=== PATIENT | male | born 1965 | race Caucasian/White ===

== ENCOUNTER → 2016-08-24 | Outpatient (CLI) | payer BC, SELFPAY ==
[~2016-08-24] MED LIST: COLA100C3 PO; PERC5TAB6 PO; TOPR25TA PO; TYLE325T5 PO; ZOCO20TA PO; chlorthalidone OR; cholesterol med OR; simvastatin OR
[2016-08-24 08:45] LABS: MEAN CORPUSCULAR HEMOGLOBIN 33.3 pg (27.0-33.0); MEAN CORPUSCULAR HGB CONC 35.1 g/dl (32.0-36.5); MEAN CORPUSCULAR VOLUME 94.9 fl (80.0-96.0); WHITE BLOOD COUNT 5.4 K/mm3 (4.0-10.0)
[2016-08-24 09:08] LABS: CALCIUM LEVEL 9.6 MG/DL (8.5-10.1); CREATININE FOR GFR 1.79 MG/DL (0.70-1.30); GLOMERULAR FILTRATION RATE 43.4 (>60); POTASSIUM SERUM 4.5 MEQ/L (3.5-5.1)
== END ==
LOC: M LAB 08:16
PROVIDERS: ATTEND Urology
DX: N18.3 Chronic kidney disease, stage 3 (moderate) (principal); Z85.528 Personal history of other malignant neoplasm of kidney

== ENCOUNTER → 2016-09-09 | Outpatient (CLI) | payer BC ==
--- NOTE | 2016-09-09 18:04 | REP ---
MRI KIDNEYS WITH AND WITHOUT CONTRAST: TECHNIQUE: Multiple sequences obtained prior to and following the intravenous administration of 24 mL of gadolinium. Comparison made with prior study of 05/01/2015. Multiple hepatic cysts are again seen as on the prior exam. The large cyst in the inferior right lobe appears to have slightly increased in size now with the transverse diameter of 6.7 cm. Spleen, adrenals and pancreas appear unremarkable once again. Once again, there is evidence of prior partial nephrectomy at the lower pole of the right kidney. Cyst is again seen in the lower pole of the left kidney, unchanged. No regional adenopathy is seen and there is no free fluid in the visualized abdomen. There is no hydronephrosis bilaterally. IMPRESSION: Stable exam. No new mass or adenopathy. Signed by Dimitrios Joiner MD 09/12/2016 08:15 P
== END ==
LOC: M RAD 14:49
PROVIDERS: ATTEND Urology
DX: Z08 Encounter for follow-up examination after completed treatment for malignant neoplasm (principal); Z85.528 Personal history of other malignant neoplasm of kidney; N28.1 Cyst of kidney, acquired
CPT/HCPCS: 74183; A9576

== ENCOUNTER → 2016-09-14 | Outpatient (CLI) | payer BC ==
--- NOTE | 2016-09-15 03:34 | REP ---
Clinical: History of renal malignancy . Comparison: 05/08/2015 . Technique: PA and lateral. Findings: The mediastinum and cardiac silhouette are normal. The lung trujillo are clear and without acute consolidation, effusion, or pneumothorax. The skeletal structures are intact and normal. Impression: 1. No acute cardiopulmonary process. Signed by Raji Graf MD 09/15/2016 03:26 A
== END ==
LOC: M SMT 08:45
PROVIDERS: ATTEND Nurse Practitioner Family
DX: Z85.528 Personal history of other malignant neoplasm of kidney (principal)

== ENCOUNTER → 2017-10-25 | Outpatient (REF) | payer BC ==
[2017-10-25 12:18] LABS: BASO # 0.1 10^3/uL (0.0-0.2); BASO % 0.8 % (0.0-1.0); EOS # 0.2 10^3/uL (0.0-0.50); EOS % 3.9 % (0.0-3.0); HEMATOCRIT 42.9 % (42.0-52.0); HEMOGLOBIN 15.2 g/dl (13.5-17.5); IMMATURE GRANULOCYTE % 0.6 % (0-3.0); LYMPH # 1.5 10^3/uL (1.5-4.5); LYMPH % 24.8 % (24.0-44.0); MEAN CORPUSCULAR HEMOGLOBIN 33.8 pg (27.0-33.0); MEAN CORPUSCULAR HGB CONC 35.4 g/dl (32.0-36.5); MEAN CORPUSCULAR VOLUME 95.3 fl (80.0-96.0); MONO # 0.5 10^3/uL (0.0-0.8); MONO % 8.5 % (0.0-5.0); NEUTROPHILS # 3.8 10^3/uL (1.8-7.7); NEUTROPHILS % 61.4 % (36.0-66.0); PLATELET COUNT, AUTOMATED 203 10^3/uL (150-450); RED CELL DISTRIBUTION WIDTH 11.9 % (11.5-14.5); WHITE BLOOD COUNT 6.2 10^3/uL (4.0-10.0)
[2017-10-25 12:42] LABS: TOTAL 25(OH) VITAMIN D 19.1 NG/ML (30.0-100.0)
[2017-10-25 12:47] LABS: ALBUMIN 3.8 GM/DL (3.2-5.2); ALBUMIN/GLOBULIN RATIO 1.23 (1.00-1.93); ALKALINE PHOSPHATASE 90 U/L (45-117); ALT/SGPT 45 U/L (12-78); ANION GAP 9 MEQ/L (8-16); AST/SGOT 15 U/L (7-37); BILIRUBIN,TOTAL 0.5 MG/DL (0.2-1.0); BLOOD UREA NITROGEN 27 MG/DL (7-18); CALCIUM LEVEL 9.5 MG/DL (8.5-10.1); CARBON DIOXIDE LEVEL 29 MEQ/L (21-32); CHLORIDE LEVEL 108 MEQ/L (98-107); CHOLESTEROL LEVEL 230 MG/DL (<200); CHOLESTEROL RISK RATIO 5.897 (<5); CREATININE FOR GFR 1.72 MG/DL (0.70-1.30); GLOMERULAR FILTRATION RATE 45.2 (>60); GLUCOSE, FASTING 99 MG/DL (70-100); HDL CHOLESTEROL 39 MG/DL (>40); LDL CHOLESTEROL 168.2 MG/DL (<100); NON-HDL-C 191 MG/DL; POTASSIUM SERUM 4.8 MEQ/L (3.5-5.1); SODIUM LEVEL 146 MEQ/L (136-145); TOTAL PROTEIN 6.9 GM/DL (6.4-8.2); TRIGLYCERIDES LEVEL 114 MG/DL (<150)
== END ==
LOC: M SFHCADAM 08:16
DX: E78.2 Mixed hyperlipidemia (principal); I12.9 Hypertensive chronic kidney disease with stage 1 through stage 4 chronic kidney disease, or unspecified chronic kidney disease; N18.3 Chronic kidney disease, stage 3 (moderate); E55.9 Vitamin D deficiency, unspecified

== ENCOUNTER → 2017-11-15 | Outpatient (CLI) | payer BC | LOC: M CARPUL 08:35 | DX: I48.2 Chronic atrial fibrillation (principal) | CPT/HCPCS: 93306 ==

== ENCOUNTER → 2017-12-25 | Outpatient (REF) | payer BC ==
[2017-12-25 14:06] LABS: NT-PRO BNP 85 PG/ML (<125)
== END ==
LOC: M LABDRAW1 12:17
DX: I42.0 Dilated cardiomyopathy (principal)
CPT/HCPCS: 83735

== ENCOUNTER 2018-05-15 06:51 | Day surgery (SDC) | payer BC ==
[~2018-05-15] VITALS: Ht 180.3 cm; Wt 122.0 kg
[~2018-05-15 06:51] MED LIST changes: +AMLO5TAB6 PO; +CHLO25TA PO; -COLA100C3 PO; +COLA100C5 PO; +LISI-538 PO; +PERC5TAB12 PO; -PERC5TAB6 PO; -TOPR25TA PO; +TOPR25TA13 PO; +XARE20TA PO
[2018-05-15] MEDS ORDERED: LIDOCAINE 2% INJ 100 MG/5 ML SDV (FOR ANES.) As Ordered ONE ×2 (06:59→08:21)
[2018-05-15] MEDS ORDERED: PROPOFOL 200 MG/20 ML VIAL As Ordered ONE ×2 (07:00→08:21)
[2018-05-15] MEDS ORDERED: METOPROLOL 5 MG/5 ML VIAL As Ordered ONE (07:50)
--- NOTE | 2018-05-15 07:54 | ROOR ---
Patient Name: Lele Vasquez Procedure Date: 05/15/2018 7:30 AM Date of : 1965 Age: 52 Room: [facility] Gender: Male Note Status: Finalized Procedure: Colonoscopy Indications: Screening for colorectal malignant neoplasm Providers: Dion HILTON MD Referring MD: SONIDO Lopez Requesting Provider: Medicines: Monitored Anesthesia Care Complications: No immediate complications. Procedure: Pre-Anesthesia Assessment: - The heart rate, respiratory rate, oxygen saturations, blood pressure, adequacy of pulmonary ventilation, and response to care were monitored throughout the procedure. The Colonoscope was introduced through the anus and advanced to the terminal ileum, with identification of the appendiceal orifice and IC valve. The colonoscopy was performed without difficulty. The patient tolerated the procedure well. The quality of the bowel preparation was good. Findings: The perianal and digital rectal examinations were normal. A 5 mm polyp was found in the sigmoid colon. The polyp was sessile. The polyp was removed with a cold snare. Resection and retrieval were complete. Mild sigmoid diverticulosis and moderate internal hemorrhoids. The exam was otherwise normal throughout the examined colon. Impression: - One 5 mm polyp in the sigmoid colon, removed with a cold snare. Resected and retrieved. - Minimal sigmoid diverticulosis. - Moderate internal hemorrhoids. - The colon exam was otherwise normal. Recommendation: - Repeat colonoscopy in 5 years for surveillance. Dion Hilton MD Dion HILTON MD 05/15/2018 7:53:54 AM This report has been signed electronically. Number of Addenda: 0 Note Initiated On: 05/15/2018 7:30 AM Estimated Blood Loss: Estimated blood loss: none.
[2018-05-15] MEDS ORDERED: NS 1,000 ML IV ONE (08:00)
[2018-05-15] MEDS ORDERED: MIDAZOLAM INJ 2 MG/2 ML VIAL (J2250) As Ordered ONE (08:21)
[2018-05-15] MEDS ORDERED: fentaNYL 100 MCG/2 ML INJECTION (J3010) As Ordered ONE (08:21)
[2018-05-15] MEDS ORDERED: ROCURONIUM BROMIDE 50 MG/5 ML VIAL As Ordered ONE (08:21)
[2018-05-15] MEDS ORDERED: ONDANSETRON 4MG/2ML VIAL (J2405) As Ordered ONE (08:21)
[2018-05-15] MEDS ORDERED: METOCLOPRAMIDE INJ 10MG/2ML VIAL (J2765) As Ordered ONE (08:21)
== END 2018-05-15 08:16 | disposition home or self-care (01) ==
LOC: M OPP 06:51
PROVIDERS: ATTEND Internal Medicine Gastroenterology
DX: Z12.11 Encounter for screening for malignant neoplasm of colon (principal); K63.5 Polyp of colon; K57.30 Diverticulosis of large intestine without perforation or abscess without bleeding; K64.8 Other hemorrhoids; G47.30 Sleep apnea, unspecified; I48.91 Unspecified atrial fibrillation; E78.00 Pure hypercholesterolemia, unspecified; N18.3 Chronic kidney disease, stage 3 (moderate); Z79.899 Other long term (current) drug therapy; Z85.528 Personal history of other malignant neoplasm of kidney; Z80.52 Family history of malignant neoplasm of bladder

== ENCOUNTER → 2019-05-02 | Outpatient (REF) | payer BC ==
[~2019-05-02] MED LIST changes: +TOPR25TA PO; -TOPR25TA13 PO
== END ==
LOC: M LAB REF 17:49
PROVIDERS: ATTEND Dermatology
DX: D22.39 Melanocytic nevi of other parts of face (principal)

== ENCOUNTER → 2019-06-04 | Outpatient (REF) | payer BC | LOC: M LAB REF 18:46 | PROVIDERS: ATTEND Dermatology | DX: D03.39 Melanoma in situ of other parts of face (principal) ==

== ENCOUNTER → 2019-09-25 | Outpatient (REF) | payer BC | LOC: M LAB REF 17:18 | PROVIDERS: ATTEND Dermatology | DX: D23.9 Other benign neoplasm of skin, unspecified (principal); L57.0 Actinic keratosis ==

== ENCOUNTER → 2020-06-18 | Outpatient (REF) | payer BC ==
[~2020-06-18] MED LIST changes: +AMLO1TAB24 PO; -AMLO5TAB6 PO; -LISI-538 PO; +LISI20TA33 PO
[2020-06-18 13:05] LABS: APPEARANCE, URINE CLEAR (CLEAR); BACTERIA, URINE AUTO NEGATIVE (NEGATIVE); BILIRUBIN, URINE AUTO NEGATIVE (NEGATIVE); BLOOD, URINE BLOOD NEGATIVE (NEGATIVE); COLOR, URINE YELLOW (YELLOW); GLUCOSE, URINE (UA) AUTO NEGATIVE (NEGATIVE); KETONE, URINE AUTO NEGATIVE (NEGATIVE); LEUKOCYTE ESTERASE, URINE AUTO NEGATIVE (NEGATIVE); MUCUS, URINE SMALL (NEGATIVE); NITRITE, URINE AUTO NEGATIVE (NEGATIVE); PROTEIN, URINE AUTO 2+ mg/dL (NEGATIVE); RBC, URINE AUTO 1 /HPF (0-3); SPECIFIC GRAVITY URINE AUTO 1.019 (1.002-1.035); SQUAMOUS EPITHELIAL CELL UR AU 0 /HPF (0-6); UROBILINOGEN, URINE AUTO 0.2 mg/dL (0.0-2.0); WBC, URINE AUTO 1 /HPF (0-3)
[2020-06-18 13:06] LABS: BASO # 0.1 10^3/uL (0.0-0.2); BASO % 0.8 % (0.0-1.0); EOS # 0.2 10^3/uL (0.0-0.5); EOS % 3.3 % (0.0-3.0); HEMATOCRIT 48.3 % (42.0-52.0); HEMOGLOBIN 16.5 g/dl (13.5-17.5); LYMPH # 1.8 10^3/uL (1.5-5.0); LYMPH % 24.9 % (24.0-44.0); MEAN CORPUSCULAR HEMOGLOBIN 33.3 pg (27.0-33.0); MEAN CORPUSCULAR HGB CONC 34.2 g/dl (32.0-36.5); MEAN CORPUSCULAR VOLUME 97.4 fl (80.0-96.0); MONO # 0.7 10^3/uL (0.0-0.8); MONO % 9.8 % (2.0-8.0); NEUTROPHILS # 4.4 10^3/uL (1.5-8.5); NEUTROPHILS % 60.4 % (36.0-66.0); PLATELET COUNT, AUTOMATED 211 10^3/uL (150-450); RED BLOOD COUNT 4.96 10^6/uL (4.30-6.10); WHITE BLOOD COUNT 7.2 10^3/uL (4.0-10.0)
[2020-06-18 13:19] LABS: HEMOGLOBIN A1c 5.2 %
[2020-06-18 13:45] LABS: ALBUMIN 4.3 GM/DL (3.2-5.2); BILIRUBIN,TOTAL 0.6 MG/DL (0.2-1.0); CALCIUM LEVEL 10.3 MG/DL (8.5-10.1); CHOLESTEROL RISK RATIO 5.153 (<5); CREATININE FOR GFR 1.83 MG/DL (0.70-1.30); FREE T4 1.02 NG/DL (0.76-1.46); GLOMERULAR FILTRATION RATE 41.6 (>56); POTASSIUM SERUM 4.8 MEQ/L (3.5-5.1); THYROID STIMULATING HORMONE 4.44 uIU/ML (0.358-3.740); TOTAL PROTEIN 7.4 GM/DL (6.4-8.2)
== END ==
LOC: M SFHCADAM 09:50
PROVIDERS: ATTEND Physician Assistant Medical
DX: E78.2 Mixed hyperlipidemia (principal); I10 Essential (primary) hypertension; I12.9 Hypertensive chronic kidney disease with stage 1 through stage 4 chronic kidney disease, or unspecified chronic kidney disease; E66.01 Morbid (severe) obesity due to excess calories; N18.30 Chronic kidney disease, stage 3 unspecified; E55.9 Vitamin D deficiency, unspecified

== ENCOUNTER → 2020-07-16 | Outpatient (CLI) | payer BC ==
--- NOTE | 2020-07-17 12:35 | SLEEPHOME ---
DATE: 07/16/2020 ORDERED BY: Karen Kennedy, Cardiology Diagnostic home sleep testing was performed due to concern for the obstructive sleep apnea syndrome in this patient with a history of nonrestorative sleep. For testing, a nocturnal T3 respiratory monitoring device was used. Continuous record was made of pulse, oxygen saturation, air flow, chest and abdominal strain, and body position. There was 9 hours and 59 minutes of data reviewed. There was 8 hours and 40 minutes marked as time in bed. During the interval marked time in bed, there were 342 respiratory events identified of 10 seconds in duration or greater for a respiratory event index of 39.4. The events were obstructive. Baseline pulse rate 85. Pulse rate ranged 61-104. Baseline saturation 92%. Saturations fell to 78%. Testing was performed in both the supine and nonsupine positions. IMPRESSION: Abnormal home sleep testing with repetitive respiratory events and oxygen desaturations to 78% with a respiratory event index of 39.4 is consistent with the obstructive sleep apnea syndrome. RECOMMENDATION: The patient should be encouraged to undergo formal sleep evaluation.
== END ==
LOC: M SLEEP HO 08:59
PROVIDERS: ATTEND Physician Assistant
DX: G47.9 Sleep disorder, unspecified (principal)

== ENCOUNTER → 2021-01-21 | Outpatient (CLI) | payer BC ==
--- NOTE | 2021-01-21 13:28 | REP ---
INDICATION: SHORTNESS OF BREATH. COMPARISON: Multiple the latest 09/14/2016 TECHNIQUE: PA and lateral FINDINGS: The heart size is increased since the prior exam. There is mild cardiomegaly. Lung trujillo are clear and stable. The pleural angles are sharp. The osseous structures stable intact. IMPRESSION: Mild cardiomegaly without evidence of acute cardiopulmonary disease. <Electronically signed by Dheeraj Farley > 01/21/21 [id number]
[2021-01-21 15:36] LABS: HEMOGLOBIN 15.8 g/dl (13.5-17.5); MEAN CORPUSCULAR HEMOGLOBIN 34.1 pg (27.0-33.0); MEAN CORPUSCULAR HGB CONC 34.3 g/dl (32.0-36.5); MEAN CORPUSCULAR VOLUME 99.1 fl (80.0-96.0); PLATELET COUNT, AUTOMATED 227 10^3/uL (150-450); RED BLOOD COUNT 4.64 10^6/uL (4.30-6.10)
[2021-01-21 15:54] LABS: ALBUMIN 4.3 GM/DL (3.2-5.2); BILIRUBIN,TOTAL 0.6 MG/DL (0.2-1.0); CALCIUM LEVEL 10.7 MG/DL (8.5-10.1); CHOLESTEROL RISK RATIO 4.771 (<5); CREATININE FOR GFR 2.02 MG/DL (0.70-1.30); POTASSIUM SERUM 4.7 MEQ/L (3.5-5.1); TOTAL PROTEIN 7.3 GM/DL (6.4-8.2)
== END ==
LOC: M RAD 11:39
PROVIDERS: ATTEND Physician Assistant
DX: I50.22 Chronic systolic (congestive) heart failure (principal); E78.2 Mixed hyperlipidemia; I48.11 Longstanding persistent atrial fibrillation; R06.02 Shortness of breath; I51.7 Cardiomegaly

== ENCOUNTER → 2021-02-25 | Outpatient (CLI) | payer BC | LOC: M RAD 08:33 | PROVIDERS: ATTEND Physician Assistant Medical | DX: K76.89 Other specified diseases of liver (principal) ==

== ENCOUNTER → 2021-03-18 | Outpatient (CLI) | payer BC ==
[2021-03-18 11:27] LABS: CREATININE FOR GFR 1.85 MG/DL (0.70-1.30); GLOMERULAR FILTRATION RATE 40.9 (>56)
== END ==
LOC: M LAB 10:29
PROVIDERS: ATTEND Physician Assistant Medical
DX: I10 Essential (primary) hypertension (principal)

== ENCOUNTER → 2021-03-22 | Outpatient (CLI) | payer BC ==
[~2021-03-22] MED LIST changes: +PROHANCE 279.3MG/ML 5ML VIAL As Ordered ONE
--- NOTE | 2021-03-23 08:41 | REP ---
INDICATION: LIVER CYST. COMPARISON: MRI 09/09/2016, ultrasound 02/25/2021. TECHNIQUE: Multiple sequences performed in the axial and coronal planes prior to and following the intravenous administration of 10 mL ProHance. FINDINGS: The liver is not enlarged. There are multiple, innumerable cysts again seen throughout the liver which have increased in size and number compared to the prior MRI. Largest cyst is exophytic at the inferior aspect of the right lobe. This contains thin nonenhancing septations. Maximum diameter is 8.6 cm. Another dominant cyst more anteriorly in the right lobe measures 7.2 cm maximally. No suspicious enhancing liver mass is seen. There is diffuse decreased signal of liver parenchyma on T2 weighted, inphase and FFE sequences suggesting diffuse iron deposition in the liver. The spleen is normal in size with no intrinsic abnormality. The adrenal glands are normal. No pancreatic mass is seen. There is no pancreatic duct dilatation. The gallbladder demonstrates no filling defect or wall thickening. There is no evidence of biliary dilatation. There has been a prior partial nephrectomy inferiorly on the right. There is a bilobed cyst of the lower pole the left kidney which has increased in size, maximum diameter 2.9 cm. There is no adenopathy or free fluid. IMPRESSION: Multiple, innumerable liver cysts throughout the liver have increased in size and number compared to the prior MRI. There is no suspicious enhancing liver mass. There are signal changes in the liver parenchyma suggesting diffuse iron deposition. Benign cyst lower pole left kidney. <Electronically signed by Dimitrios Joiner > 03/23/21 [id number]
== END ==
LOC: M RAD 16:07
PROVIDERS: ATTEND Physician Assistant Medical
DX: K76.89 Other specified diseases of liver (principal); N28.1 Cyst of kidney, acquired
CPT/HCPCS: 74183; A9576

== ENCOUNTER → 2022-02-10 | Outpatient (REF) | payer BC ==
[~2022-02-10] MED LIST changes: -PROHANCE 279.3MG/ML 5ML VIAL As Ordered ONE; +SIMV-253 PO; -ZOCO20TA PO
[2022-02-10 13:41] LABS: BASO # 0.1 10^3/uL (0.0-0.2); BASO % 0.8 % (0.0-1.0); EOS # 0.2 10^3/uL (0.0-0.5); EOS % 3.1 % (0.0-3.0); HEMATOCRIT 43.6 % (42.0-52.0); LYMPH # 1.6 10^3/uL (1.5-5.0); LYMPH % 26.9 % (24.0-44.0); MEAN CORPUSCULAR HEMOGLOBIN 33.6 pg (27.0-33.0); MEAN CORPUSCULAR HGB CONC 34.4 g/dl (32.0-36.5); MEAN CORPUSCULAR VOLUME 97.5 fl (80.0-96.0); MONO # 0.6 10^3/uL (0.0-0.8); MONO % 9.4 % (2.0-8.0); NEUTROPHILS # 3.6 10^3/uL (1.5-8.5); NEUTROPHILS % 59.3 % (36.0-66.0); PLATELET COUNT, AUTOMATED 197 10^3/uL (150-450); RED BLOOD COUNT 4.47 10^6/uL (4.30-6.10); WHITE BLOOD COUNT 6.1 10^3/uL (4.0-10.0)
[2022-02-10 14:02] LABS: HEMOGLOBIN A1c 5.4 % (4.0-6.0)
[2022-02-10 14:14] LABS: ALBUMIN 4.2 G/DL (3.2-5.2); BILIRUBIN,TOTAL 0.6 MG/DL (0.3-1.2); CALCIUM LEVEL 10.6 MG/DL (8.5-10.1); CHOLESTEROL RISK RATIO 4.3 (<5); CREATININE FOR GFR 1.77 MG/DL (0.70-1.30); GLOMERULAR FILTRATION RATE 42.9 (>56); HDL CHOLESTEROL 31.8 MG/DL (>40); LDL CHOLESTEROL 83.2 MG/DL (<100); POTASSIUM SERUM 4.3 MMOL/L (3.5-5.1); THYROID STIMULATING HORMONE 2.471 uIU/ML (0.55-4.78); TOTAL 25(OH) VITAMIN D 23.3 NG/ML (20.0-100.0); TOTAL PROTEIN 6.6 G/DL (5.7-8.2)
== END ==
LOC: M SFHCADAM 10:41
PROVIDERS: ATTEND Physician Assistant Medical
DX: E78.2 Mixed hyperlipidemia (principal); I10 Essential (primary) hypertension; E66.01 Morbid (severe) obesity due to excess calories; I11.0 Hypertensive heart disease with heart failure; R73.01 Impaired fasting glucose

== ENCOUNTER → 2023-02-15 | Outpatient (REF) | payer BC ==
[2023-02-15 13:18] LABS: HEMATOCRIT 46.4 % (42.0-52.0); HEMOGLOBIN 15.7 g/dl (13.5-17.5); MEAN CORPUSCULAR HEMOGLOBIN 33.3 pg (27.0-33.0); MEAN CORPUSCULAR HGB CONC 33.8 g/dl (32.0-36.5); MEAN CORPUSCULAR VOLUME 98.5 fl (80.0-96.0); PLATELET COUNT, AUTOMATED 233 10^3/uL (150-450); RED BLOOD COUNT 4.71 10^6/uL (4.30-6.10); WHITE BLOOD COUNT 6.5 10^3/uL (4.0-10.0)
[2023-02-15 13:32] LABS: URIC ACID 8.6 MG/DL (3.7-9.2)
[2023-02-15 13:33] LABS: HEMOGLOBIN A1c 5.3 % (4.0-6.0)
[2023-02-15 13:35] LABS: IRON (FE) 152 UG/DL (65-175); PERCENT SATURATION 53.3 % (19.7-50.0); TOTAL IRON BINDING CAPACITY 285 UG/DL (250-425)
[2023-02-15 13:39] LABS: ALBUMIN 3.9 G/DL (3.2-5.2); ALKALINE PHOSPHATASE 96 U/L (46-116); ALT/SGPT 26 U/L (7.0-40); AST/SGOT < 8 U/L (<34); BILIRUBIN,TOTAL 0.6 MG/DL (0.3-1.2); BLOOD UREA NITROGEN 31 MG/DL (9-23); CALCIUM LEVEL 10.3 MG/DL (8.5-10.1); CARBON DIOXIDE LEVEL 28 MMOL/L (20-31); CHLORIDE LEVEL 103 MMOL/L (98-107); CHOLESTEROL LEVEL 204 MG/DL (<200); CHOLESTEROL RISK RATIO 4.98 (<5); CREATININE FOR GFR 1.56 MG/DL (0.70-1.30); FERRITIN 591.2 NG/ML (10.5-307.3); FREE T4 1.03 NG/DL (0.89-1.76); GLOMERULAR FILTRATION RATE 49.4 (>56); GLUCOSE, FASTING 91 MG/DL (60-100); HDL CHOLESTEROL 40.9 MG/DL (>40); LDL CHOLESTEROL 136.1 MG/DL (<100); NON-HDL-C 163.1 MG/DL; POTASSIUM SERUM 4.7 MMOL/L (3.5-5.1); SODIUM LEVEL 136 MMOL/L (136-145); THYROID STIMULATING HORMONE 5.521 uIU/ML (0.55-4.78); TOTAL PROTEIN 6.8 G/DL (5.7-8.2); TRIGLYCERIDES LEVEL 135 MG/DL (<150)
== END ==
LOC: M SFHCADAM 08:41
PROVIDERS: ATTEND Family Medicine
DX: M10.9 Gout, unspecified (principal); E83.110 Hereditary hemochromatosis; E78.2 Mixed hyperlipidemia; I48.21 Permanent atrial fibrillation; I12.9 Hypertensive chronic kidney disease with stage 1 through stage 4 chronic kidney disease, or unspecified chronic kidney disease; N18.31 Chronic kidney disease, stage 3a; Z13.1 Encounter for screening for diabetes mellitus

== ENCOUNTER 2023-10-07 23:46 | Emergency (ER) | payer OTHER ==
[~2023-10-07] VITALS: Ht 180.3 cm; Wt 133.1 kg
[~2023-10-07 23:46] MED LIST changes: +CARD120T4 PO; +METO100T5 PO; +ROSU40TA63 PO; +SIMV40TA20
[2023-10-08 00:45] LABS: BASO % 0.5 % (0.0-1.0); EOS # 0.2 10^3/uL (0.0-0.5); EOS % 2.7 % (0.0-3.0); HEMATOCRIT 41.5 % (42.0-52.0); HEMOGLOBIN 14.1 g/dl (13.5-17.5); LYMPH # 1.5 10^3/uL (1.5-5.0); LYMPH % 19.1 % (24.0-44.0); MEAN CORPUSCULAR HEMOGLOBIN 32.6 pg (27.0-33.0); MEAN CORPUSCULAR VOLUME 96.1 fl (80.0-96.0); MONO # 0.7 10^3/uL (0.0-0.8); MONO % 9.2 % (2.0-8.0); NEUTROPHILS # 5.5 10^3/uL (1.5-8.5); NEUTROPHILS % 68.3 % (36.0-66.0); PLATELET COUNT, AUTOMATED 201 10^3/uL (150-450); RED BLOOD COUNT 4.32 10^6/uL (4.30-6.10); WHITE BLOOD COUNT 8.1 10^3/uL (4.0-10.0)
[2023-10-08 00:50] LABS: ERYTHROCYTE SEDIMENTATION RATE 18 mm/hr (0-20)
[2023-10-08 01:00] LABS: C REACTIVE PROTEIN QUANTITATIV 2.8 MG/DL (<1.0)
[2023-10-08 01:02] LABS: CALCIUM LEVEL 10.2 MG/DL (8.5-10.1); CREATININE FOR GFR 1.97 MG/DL (0.70-1.30); GLOMERULAR FILTRATION RATE 37.8 (>56); POTASSIUM SERUM 4.2 MMOL/L (3.5-5.1)
[2023-10-08] MEDS ORDERED: PRED20TA PO (06:27)
[2023-10-08] MEDS: predniSONE 20 MG TAB PO ONE (06:29)
[2023-10-08 06:37] VITALS: BP 152/89; TEMP 98.1; O2SAT 97
== END 2023-10-08 06:39 | disposition home or self-care (01) ==
LOC: M ED 23:46
DX: M65.272 Calcific tendinitis, left ankle and foot (principal); I10 Essential (primary) hypertension; I48.91 Unspecified atrial fibrillation; G47.33 Obstructive sleep apnea (adult) (pediatric); E78.5 Hyperlipidemia, unspecified; Z79.52 Long term (current) use of systemic steroids; Z79.899 Other long term (current) drug therapy
CPT/HCPCS: 36415; 80048; 85025; 85652; 86140; 99284; J7512

== ENCOUNTER → 2023-10-30 | Outpatient (REF) | payer BC ==
[~2023-10-30] MED LIST changes: +PRED20TA PO
[2023-10-30 15:41] LABS: ALBUMIN 4.2 G/DL (3.2-5.2); BILIRUBIN,TOTAL 0.8 MG/DL (0.3-1.2); CALCIUM LEVEL 10.4 MG/DL (8.5-10.1); CHOLESTEROL RISK RATIO 5.48 (<5); CREATININE FOR GFR 1.66 MG/DL (0.70-1.30); HDL CHOLESTEROL 39.9 MG/DL (>40); LDL CHOLESTEROL 155.9 MG/DL (<100); NON-HDL-C 179.1 MG/DL; POTASSIUM SERUM 4.6 MMOL/L (3.5-5.1); TOTAL PROTEIN 6.9 G/DL (5.7-8.2)
[2023-10-30 15:43] LABS: THYROID STIMULATING HORMONE 1.711 uIU/ML (0.55-4.78); TOTAL 25(OH) VITAMIN D 20.9 NG/ML (20.0-100.0)
[2023-10-30 17:11] LABS: HEMOGLOBIN A1c 5.5 % (4.0-6.0)
== END ==
LOC: M SFHCADAM 09:17
PROVIDERS: ATTEND Physician Assistant Medical
DX: R79.89 Other specified abnormal findings of blood chemistry (principal); I50.22 Chronic systolic (congestive) heart failure; I11.0 Hypertensive heart disease with heart failure; E55.9 Vitamin D deficiency, unspecified; R73.01 Impaired fasting glucose

== ENCOUNTER → 2024-08-05 | Outpatient (REF) | payer OTHER, BC ==
[~2024-08-05] MED LIST changes: -ROSU40TA63 PO; +ROSU40TA81 PO
== END ==
LOC: M LAB REF 15:28
PROVIDERS: ATTEND Surgery
DX: D03.62 Melanoma in situ of left upper limb, including shoulder (principal)

== ENCOUNTER 2024-11-04 12:36 | Inpatient (IN) | payer BC ==
[~2024-11-04] VITALS: Ht 177.8 cm; Wt 125.9 kg
[2024-11-04 12:24] LABS: BASO # 0.1 10^3/uL (0.0-0.2); BASO % 0.8 % (0.0-1.0); EOS # 0.2 10^3/uL (0.0-0.5); EOS % 2.8 % (0.0-3.0); LYMPH # 1.3 10^3/uL (1.5-5.0); LYMPH % 20.4 % (24.0-44.0); MONO # 0.5 10^3/uL (0.0-0.8); MONO % 7.0 % (2.0-8.0); NEUTROPHILS # 4.5 10^3/uL (1.5-8.5); NEUTROPHILS % 68.7 % (36.0-66.0); PLATELET COUNT, AUTOMATED 186 10^3/uL (150-450)
[2024-11-04 12:43] LABS: CK-MB VALUE MASS 2.6 NG/ML (<3.6)
[2024-11-04 12:46] LABS: CPK CREATINE PHOSPHOKINASE 61.0 U/L (46-171); MB/CK RELATIVE INDEX 4.26 (< OR =4)
[2024-11-04 12:56] LABS: INR 1.16
[2024-11-04 12:59] LABS: ALT/SGPT 28.0 U/L (7.0-40); AST/SGOT 15.0 U/L (<34); CALCIUM LEVEL 10.2 MG/DL (8.5-10.1); CARBON DIOXIDE LEVEL 26.0 MMOL/L (20-31); CHLORIDE LEVEL 109.0 MMOL/L (98-107); CREATININE FOR GFR 2.0 MG/DL (0.70-1.30); GLOMERULAR FILTRATION RATE 38.2 (>56); MAGNESIUM LEVEL 2.0 MG/DL (1.8-2.4); PHOSPHORUS LEVEL 3.1 MG/DL (2.5-4.9); POTASSIUM SERUM 4.7 MMOL/L (3.5-5.1); SODIUM LEVEL 144.0 MMOL/L (136-145)
[2024-11-04] MEDS: METOPROLOL 5 MG/5 ML VIAL IV SCH (13:00)
[2024-11-04 13:47] LABS: CK-MB VALUE MASS 2.2 NG/ML (<3.6)
[2024-11-04 13:50] LABS: CPK CREATINE PHOSPHOKINASE 57.0 U/L (46-171); MB/CK RELATIVE INDEX 3.85 (< OR =4)
[2024-11-04] MEDS ORDERED: HOME MED LIST COMPLETE! XX SCH (15:40)
[2024-11-04] MEDS ORDERED: ACETAMINOPHEN 325 MG TAB PO PRN (16:25)
[2024-11-04] MEDS ORDERED: MOM 30 ML SUSPENSION UDC PO PRN (16:25)
[2024-11-04] MEDS ORDERED: MAALOX 30 ML SUSP *UDC PO PRN (16:25)
[2024-11-04] MEDS: FUROSEMIDE 40 MG/4 ML VIAL IV ONE (16:28)
[2024-11-04] MEDS: METOPROLOL TART 25 MG TABLET PO SCH (16:29)
[2024-11-04] MEDS: RIVAROXABAN 20MG TAB PO SCH (17:49)
[2024-11-04 20:56] VITALS: BP 126/94; TEMP 98.9; O2SAT 97
[2024-11-04 23:00] VITALS: O2SAT 95
[2024-11-05] VITALS (8 sets, daily range): BP systolic 131–151; BP diastolic 81–99; TEMP 97.1–98; O2SAT 95–99
[2024-11-05 05:39] LABS: CALCIUM LEVEL 10.0 MG/DL (8.5-10.1); CARBON DIOXIDE LEVEL 28.0 MMOL/L (20-31); CHLORIDE LEVEL 105.0 MMOL/L (98-107); CHOLESTEROL LEVEL 171.0 MG/DL (<200); CHOLESTEROL RISK RATIO 6.3 (<5); CREATININE FOR GFR 2.18 MG/DL (0.70-1.30); GLOMERULAR FILTRATION RATE 34.5 (>56); LDL CHOLESTEROL 121.7 MG/DL (<100); MAGNESIUM LEVEL 2.0 MG/DL (1.8-2.4); NON-HDL-C 143.9 MG/DL; PHOSPHORUS LEVEL 3.5 MG/DL (2.5-4.9); POTASSIUM SERUM 4.2 MMOL/L (3.5-5.1); PTH INTACT 240.6 PG/ML (18.5-88.0); SODIUM LEVEL 143.0 MMOL/L (136-145); TRIGLYCERIDES LEVEL 111.0 MG/DL (<150)
[2024-11-05 05:42] LABS: TOTAL 25(OH) VITAMIN D 31.5 NG/ML (20.0-100.0)
[2024-11-05 05:52] LABS: ESTIMATED AVERAGE GLUCOSE 111.0 MG/DL (60-110)
[2024-11-05] MEDS: CINACALCET 30 MG TAB PO SCH (09:37)
[2024-11-05] MEDS: METOPROLOL SUCC. 50 MG *XL* TAB PO SCH (11:48)
[2024-11-05] MEDS ORDERED: XARE20TA PO (13:50)
[2024-11-05] MEDS ORDERED: ATOR1TAB21 PO (13:50)
[2024-11-05] MEDS ORDERED: METO1TAB7 PO (13:50)
[2024-11-05] MEDS ORDERED: CINA30TA5 PO (13:50)
[2024-11-05] MEDS ORDERED: LASI20TA3 PO (13:50)
[2024-11-05] MEDS ORDERED: LOSA25TA13 PO (14:10)
[2024-11-05] MEDS ORDERED: ELIQ5TAB PO (17:37)
[2024-11-05] MEDS ORDERED: ATORVASTATIN 20 MG TAB PO SCH (21:00)
== END 2024-11-05 18:15 | disposition home or self-care (01) | DRG 201 ==
LOC: M ED 12:36 → M ED INP 16:23 → M ICU 20:45
PROVIDERS: ADMIT Student in an Organized Health Care Education/Training Program; ATTEND Student in an Organized Health Care Education/Training Program
PROC: B246ZZZ Ultrasonography of Right and Left Heart (ICD-10-PCS; principal; 2024-11-05)
DX: I48.91 Unspecified atrial fibrillation (principal); I50.23 Acute on chronic systolic (congestive) heart failure; E83.52 Hypercalcemia; N25.81 Secondary hyperparathyroidism of renal origin; I13.0 Hypertensive heart and chronic kidney disease with heart failure and stage 1 through stage 4 chronic kidney disease, or unspecified chronic kidney disease; N18.30 Chronic kidney disease, stage 3 unspecified; J98.11 Atelectasis; E78.5 Hyperlipidemia, unspecified; G47.33 Obstructive sleep apnea (adult) (pediatric); Z91.148 Patient's other noncompliance with medication regimen for other reason; Z90.5 Acquired absence of kidney

== ENCOUNTER → 2024-12-05 | Outpatient (CLI) | payer BC ==
[~2024-12-05] MED LIST changes: +ATOR1TAB21 PO; +CINA30TA5 PO; +ELIQ5TAB PO; +LASI20TA3 PO; +LOSA25TA13 PO; +METO1TAB7 PO
[2024-12-05 15:37] LABS: ALT/SGPT 35.0 U/L (7.0-40); AST/SGOT 21.0 U/L (<34); CALCIUM LEVEL 9.8 MG/DL (8.5-10.1); CARBON DIOXIDE LEVEL 29.0 MMOL/L (20-31); CHLORIDE LEVEL 106.0 MMOL/L (98-107); CREATININE FOR GFR 1.92 MG/DL (0.70-1.30); GLOMERULAR FILTRATION RATE 40.1 (>56); MAGNESIUM LEVEL 1.8 MG/DL (1.8-2.4); POTASSIUM SERUM 4.3 MMOL/L (3.5-5.1); SODIUM LEVEL 145.0 MMOL/L (136-145)
[2024-12-05 15:38] LABS: FREE T4 0.95 NG/DL (0.89-1.76)
== END ==
LOC: M LAB 14:10
PROVIDERS: ATTEND Nurse Practitioner Family
DX: I48.21 Permanent atrial fibrillation (principal); I50.42 Chronic combined systolic (congestive) and diastolic (congestive) heart failure

== ENCOUNTER → 2025-01-02 | Outpatient (CLI) | payer MEDICARE ==
[~2025-01-02] MED LIST changes: +DIGO0.123; +METO1TAB33; +SACUBITRIL-VALSARTAN
== END ==
LOC: M EKG 09:50
PROVIDERS: ATTEND Nurse Practitioner Family
DX: I48.21 Permanent atrial fibrillation (principal)

== ENCOUNTER → 2025-03-13 | Outpatient (CLI) | payer MEDICARE ==
[2025-03-13 09:19] LABS: CALCIUM LEVEL 8.8 MG/DL (8.5-10.1); CARBON DIOXIDE LEVEL 28.0 MMOL/L (20-31); CHLORIDE LEVEL 105.0 MMOL/L (98-107); CREATININE FOR GFR 2.37 MG/DL (0.70-1.30); GLOMERULAR FILTRATION RATE 31.2 (>56); MAGNESIUM LEVEL 2.0 MG/DL (1.8-2.4); POTASSIUM SERUM 5.0 MMOL/L (3.5-5.1); SODIUM LEVEL 141.0 MMOL/L (136-145)
== END ==
LOC: M LAB 08:14
PROVIDERS: ATTEND Physician Assistant Medical
DX: I50.42 Chronic combined systolic (congestive) and diastolic (congestive) heart failure (principal)

== ENCOUNTER → 2025-03-24 | Outpatient (CLI) | payer BC | LOC: M SLEEP 20:00 | PROVIDERS: ATTEND Physician Assistant | DX: G47.33 Obstructive sleep apnea (adult) (pediatric) (principal) ==